=== PATIENT | female | born 1975 | race African-American/Black ===

== ENCOUNTER 2018-08-05 17:22 | Emergency (ER) | payer OTHER, BC ==
[2018-08-05 17:48] VITALS: BP 122/81; PULSE 89; TEMP 98.6; BMI 30.7
--- NOTE | 2018-08-05 17:49 | PDOC ---
Rapid Medical Evaluation Chief Complaint: Injury Time Seen by Provider: 08/05/18 17:43 Medical Evaluation: Allergies Allergy/AdvReac Type Severity Reaction Status Date / Time chloroquine Allergy Itching Verified 08/05/18 17:44 08/05/18 17:46 I have performed a brief in-person evaluation of this patient. The patient presents with a chief complaint of: fell from chair at work, landed on right shoulder, hip/ buttock, no head injury Pertinent physical exam findings: no deformity/ no SOB, amb with no limp I have ordered the following: UcG/ UA The patient will proceed to the ED for further evaluation. Discharge Disposition - Diagnosis Fall - Referrals - Patient Instructions - Post Discharge Activity
[2018-08-05] MEDS ORDERED: IBUPROFEN 400 MG TABLET (FP) PO ONE ×2 (18:02→18:12)
--- NOTE | 2018-08-05 18:30 | PDOC ---
History of Present Illness - General Chief Complaint: Injury Stated Complaint: FALL/PAIN Time Seen by Provider: 08/05/18 17:43 History Source: Patient Exam Limitations: Clinical Condition - History of Present Illness Initial Comments: 08/05/18 18:24 Patient with no significant past medical history present with complaint of right shoulder, right wrist, lower back and mild pain to right ankle status post falling while trying to sit on a chair at work today. Patient reported she will trying to sit another rolling chair and the chair rolled behind her and she fell down on the floor. Patient reported mild pain to top of and back of right shoulder, right mid lower back. Reported increased pain to lateral aspect of right ankle with ambulation. Patient did not take anything for pain Timing/Duration: 4-6 hours Past History - Past Medical History Allergies/Adverse Reactions: Allergies Allergy/AdvReac Type Severity Reaction Status Date / Time chloroquine Allergy Itching Verified 08/05/18 17:44 Home Medications: Ambulatory Orders No122/Iron/Folic Acid [ Multi Tablet] 1 each PO DAILY 10/13/14 Docusate Sodium [Colace -] 100 mg PO BID PRN #60 capsule 11/10/15 Oxycodone HCl/Acetaminophen [Percocet 5-325 mg Tablet -] 1 - 2 tab PO Q6H #30 tab MDD 6 11/10/15 Naproxen 500 mg PO BID PRN #20 tablet 08/05/18 Anemia: No Asthma: No Cancer: No Cardiac Disorders: No CVA: No COPD: No CHF: No Dementia: No Diabetes: No GI Disorders: No Disorders: No HTN: Yes Hypercholesterolemia: Yes (NOT ON MEDS) Liver Disease: No Seizures: No Thyroid Disease: No - Surgical History Abdominal Surgery: No Appendectomy: No Cardiac Surgery: No Cholecystectomy: No Lung Surgery: No Neurologic Surgery: No Orthopedic Surgery: No - Suicide/Smoking/Psychosocial Hx Smoking History: Never smoked Have you smoked in the past 12 months: No Hx Alcohol Use: No Drug/Substance Use Hx: No Substance Use Type: Alcohol Hx Substance Use Treatment: No Review of Systems - Review of Systems Able to Perform ROS?: Yes Is the patient limited Sinhala proficient: No Constitutional: No: Weakness HEENTM: No: Symptoms Reported, Blurred Vision, Recent change in vision, Double Vision Respiratory: No: Symptoms reported Cardiac (ROS): No: Symptoms Reported ABD/GI: No: Nausea, Vomiting Musculoskeletal: Yes: Symptoms Reported, See HPI, Back Pain, Joint Pain (right shoulder and wrist), Muscle Pain (mid-back). No: Joint Swelling, Muscle Weakness, Joint Stiffness Neurological: No: Numbness, Paresthesia, Dizziness All Other Systems: Reviewed and Negative *Physical Exam - Vital Signs Last Vital Signs Temp Pulse Resp BP Pulse Ox 98.6 F 89 18 122/81 100 08/05/18 17:45 08/05/18 17:45 08/05/18 17:45 08/05/18 17:45 08/05/18 17:45 - Physical Exam Comments: 08/05/18 18:27 GENERAL: Well developed, well nourished. Awake and alert. No acute distress. CARDIOVASCULAR: Regular rate and rhythm. No murmurs, rubs, or gallops. PULMONARY: No evidence of respiratory distress. ABDOMINAL: Soft. Non-tender. Non-distended. No rebound or guarding. No organomegaly. Normoactive bowel sounds MUSCULOSKELETAL : mild tenderness over posterior paravertebral muscle of thoracic spine of T8-L4 on right sides. Mild tenderness to plantar aspect of right wrist. No swelling to wrist. Mild tenderness to lateral malleolus of right ankle. Negative anterior-posterior drawer tests of right ankle. No swelling to ankle. Mild tenderness over top and posterior side of right shoulder. Free range of motion of right shoulder and upper arm. No tenderness to upper arm or forearm. No bony deformities EXTREMITIES: No cyanosis. No clubbing. No edema. No calf tenderness. SKIN: Warm and dry. Normal capillary refill. NEUROLOGICAL: Alert, awake, appropriate. No motor deficits in the lower extremities. Gait is normal without ataxia. PSYCHIATRIC: Cooperative. Good eye contact. Appropriate mood and affect. General Appearance: Yes: Nourished, Appropriately Dressed. No: Apparent Distress ED Treatment Course - ADDITIONAL ORDERS Additional order review: Laboratory Results 08/05/18 17:52 Urine HCG, Qual Negative - RADIOLOGY Radiology Studies Ordered: Category Date Time Status SHOULDER-RIGHT [RAD] Stat Radiology 08/05/18 18:02 Ordered SPINE-LUMBAR ONLY [RAD] Stat Radiology 08/05/18 18:02 Ordered WRIST W/HAND-RIGHT* [RAD] Stat Radiology 08/05/18 18:02 Ordered - Medications Given in the ED: ED Medications Discontinued Medications Generic Name Dose Route Start Last Admin Trade Name Ena PRN Reason Stop Dose Admin Ibuprofen 800 mg 08/05/18 18:02 08/05/18 18:14 Motrin - PO 08/05/18 18:03 800 mg ONCE ONE Administration Medical Decision Making - Medical Decision Making 08/05/18 18:25 Patient with no significant past medical history present with complaint of right shoulder, right wrist, lower back and mild pain to right ankle status post falling while trying to sit on a chair at work today. Patient reported she will trying to sit another rolling chair and the chair rolled behind her and she fell down on the floor. Patient reported mild pain to top of and back of right shoulder, right mid lower back. Reported increased pain to lateral aspect of right ankle with ambulation. Patient did not take anything for pain Exam significant for mild tenderness to paravertebral muscle of lower thoracic and upper lumbar spine of T10-L4. Mild tenderness over back of right shoulder. Mild tenderness to plantar aspect of right wrist. Mild tenderness to lateral and dorsal aspect of right ankle. Patient ambulating normally with normal gait. Symptoms likely shoulder and back and wrist sprain. Motrin 800 mg by mouth ordered for pain. X-ray of right shoulder, lumbosacral and right wrist ordered to rule out acute pathology Patient with discharge on naproxen when necessary for pain if negative x-rays with orthopedist follow-up as needed 08/05/18 18:55 X-ray of right wrist, shoulder and upper back shows no acute pathology. Symptoms likely sprain. Patient stable for discharge on naproxen with advised to do hot compresses to orthopedist follow-up as needed *DC/Admit/Observation/Transfer Diagnosis at time of Disposition: Fall Qualifiers: Encounter type: initial encounter Qualified Code(s): W19.XXXA - Unspecified fall, initial encounter Sprain of right wrist Qualifiers: Encounter type: initial encounter Qualified Code(s): S63.501A - Unspecified sprain of right wrist, initial encounter Sprain of right shoulder Qualifiers: Encounter type: initial encounter Shoulder sprain type: unspecified sprain Qualified Code(s): S43.401A - Unspecified sprain of right shoulder joint, initial encounter Lumbago without sciatica Qualifiers: Chronicity: acute Back pain laterality: right Qualified Code(s): M54.5 - Low back pain - Discharge Dispostion Disposition: HOME Condition at time of disposition: Stable Decision to Admit order: No - Prescriptions Prescriptions: Naproxen 500 mg PO BID PRN #20 tablet PRN Reason: pain - Referrals Referrals: Wai Whitaker DO [Staff Physician] - - Patient Instructions Printed Discharge Instructions: Wrist Sprain, How to Use an Elastic Bandage- Knee Sprain, DI for Shoulder Sprain Additional Instructions: Your x-rays are normal and shows no acute fracture or dislocation. Symptoms likely sprain. Take prescribed medication as needed for pain. Apply hot compresses to shoulder. Right ankle and wrist as needed for pain. Follow-up with referred orthopedics if no improvement in 3 days - Post Discharge Activity Forms/Work/School Notes: Back to Work
== END 2018-08-05 19:40 | disposition home or self-care (01) ==
LOC: JERFT 17:22
DX: S43.401A Unspecified sprain of right shoulder joint, initial encounter (principal); S63.501A Unspecified sprain of right wrist, initial encounter; M54.5 Low back pain; M54.6 Pain in thoracic spine; W07.XXXA Fall from chair, initial encounter; Y93.89 Activity, other specified; Y92.89 Other specified places as the place of occurrence of the external cause; Y99.0 Civilian activity done for income or pay
CPT/HCPCS: 72100-TC-FY; 73030-TC-RT-FY; 73110-TC-RT-FY; 73130-TC-RT-FY; 84703; 99281-25